=== PATIENT | female | born 1950 | race Caucasian/White ===

== ENCOUNTER 2016-08-28 16:49 | Emergency (ER) | payer MEDICARE ==
[~2016-08-28] VITALS: Ht 157.5 cm; Wt 59.0 kg
[2016-08-28 16:56] VITALS: BP 141/72
[2016-08-28] MEDS ORDERED: BACITRACIN TOP OINT 1 UD PKG TOP ONE (19:30)
[2016-08-28] MEDS ORDERED: LIDOCAINE HCL (LOCAL ANESTH.) 0.5 % 50ML MDV IJ ONE (19:30)
[2016-08-28] MEDS ORDERED: TETANUS-DIPTH-ACEL PERTUSSIS 0.5ML SYRG IM ONE (20:00)
== END 2016-08-28 21:20 | disposition home or self-care (01) ==
LOC: ER 16:55
DX: S61.217A Laceration without foreign body of left little finger without damage to nail, initial encounter (principal); Z88.6 Allergy status to analgesic agent; M86.9 Osteomyelitis, unspecified; W45.8XXA Other foreign body or object entering through skin, initial encounter; Y93.89 Activity, other specified; Y99.8 Other external cause status; Y92.89 Other specified places as the place of occurrence of the external cause
CPT/HCPCS: 12001; 90471; 90715